=== PATIENT | male | born 1975 | race Caucasian/White ===

== ENCOUNTER 2017-02-19 01:06 | Emergency (ER) | payer MEDICAID ==
[~2017-02-19] VITALS: Ht 175.3 cm; Wt 68.8 kg
[2017-02-19 01:07] VITALS: BP 101/64
== END 2017-02-19 01:20 | disposition left against medical advice (07) ==
LOC: ED 01:14
DX: Z53.21 Procedure and treatment not carried out due to patient leaving prior to being seen by health care provider (principal)

== ENCOUNTER 2017-10-29 05:47 | Emergency (ER) | payer MEDICAID ==
[~2017-10-29] VITALS: Ht 172.7 cm; Wt 67.9 kg
[2017-10-29 05:48] VITALS: BP 117/78
[2017-10-29] MEDS ORDERED: DIPH,PERTUSS(ACELL),TET VAC/PF 0.5 ML IM-VACC ONE (06:44)
[2017-10-29] MEDS ORDERED: DIPH,PERTUSS(ACELL),TET VAC/PF NC IM-VACC ONE (07:00)
== END 2017-10-29 06:59 | disposition home or self-care (01) ==
LOC: ED 06:53
DX: S61.214A Laceration without foreign body of right ring finger without damage to nail, initial encounter (principal); X58.XXXA Exposure to other specified factors, initial encounter; Y93.89 Activity, other specified; Y92.410 Unspecified street and highway as the place of occurrence of the external cause; Y99.8 Other external cause status
CPT/HCPCS: 90471; 90715

== ENCOUNTER 2018-07-04 16:18 | Emergency (ER) | payer SELFPAY ==
[~2018-07-04] VITALS: Ht 172.7 cm; Wt 75.0 kg
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
--- NOTE | 2018-07-04 16:44 | NUR ---
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 Pt refusing lab draw, Michael Damon currently getting court order to draw pts labs. Officers remain at bedside.
--- NOTE | 2018-07-04 17:23 | NUR ---
Court order recieved, lab in to draw blood, continues to be aggressive with staff, officers at bedside.
--- NOTE | 2018-07-04 17:52 | NUR ---
Officers awaiting lab results prior to dc
== END 2018-07-04 18:26 | disposition home or self-care (01) ==
LOC: EDBD → MERGE 16:18 → ED 18:20
DX: S01.81XA Laceration without foreign body of other part of head, initial encounter (principal); F10.20 Alcohol dependence, uncomplicated; Z72.9 Problem related to lifestyle, unspecified; Y04.8XXA Assault by other bodily force, initial encounter; Y93.89 Activity, other specified; Y92.89 Other specified places as the place of occurrence of the external cause; Y99.8 Other external cause status
CPT/HCPCS: 36415; 86705; 86706; 86803; 87340; 87521; 87806; 99283; G0475

== ENCOUNTER 2019-08-22 15:56 | Emergency (ER) | payer MEDICAID, OTHER ==
[~2019-08-22] VITALS: Ht 175.3 cm; Wt 68.4 kg
[2019-08-22] MEDS ORDERED: CEPHALEXIN 500 MG CAPSULE ONE (16:21)
[2019-08-22] MEDS ORDERED: CEPHALEXIN 500 MG CAPSULE PO ONE (16:30)
--- NOTE | 2019-08-22 16:31 | NUR ---
PT SITTING IN BED, RESPIRATIONS EVEN AND UNLABORED, NO SIGNS OF DISTRESS. TECH AT BEDSIDE ATTEMPTING TO REMOVE RING WITH RING CUTTER.
--- NOTE | 2019-08-22 17:12 | NUR ---
PT AMBULATORY TO D/C.
[2019-08-22 17:30] VITALS: BP 103/54
--- NOTE | 2019-08-22 18:32 | NUR ---
PT SITTING IN BED, NO SIGNS OF DISTRESS. PATHOLOGY LABORATORY TECHNOLOGIST AT BEDSIDE TO CUT RING.
== END 2019-08-22 18:53 | disposition home or self-care (01) ==
LOC: ED 16:41
DX: S61.212A Laceration without foreign body of right middle finger without damage to nail, initial encounter (principal); L03.011 Cellulitis of right finger; W22.8XXA Striking against or struck by other objects, initial encounter; Y93.89 Activity, other specified; Y92.89 Other specified places as the place of occurrence of the external cause; Y99.8 Other external cause status
CPT/HCPCS: 99283

== ENCOUNTER 2019-10-29 18:56 | Emergency (ER) | payer MEDICAID ==
[~2019-10-29] VITALS: Ht 177.8 cm; Wt 61.1 kg
[~2019-10-29 18:56] MED LIST: ACET325C6 PO; CLIN150C14 PO
[2019-10-29 19:09] VITALS: BP 115/59
--- NOTE | 2019-10-29 19:40 | NUR ---
LOBBY STAFF NOTES THAT THIS PT HAS LEFT AT THIS TIME STATING THAT HE HAD SOME THINGS TO DO. AMBULATED OUT OF ER WITH STEADY GAIT AND NAD
== END 2019-10-29 19:42 | disposition left against medical advice (07) ==
LOC: ED 19:30
DX: M54.2 Cervicalgia (principal); Z53.21 Procedure and treatment not carried out due to patient leaving prior to being seen by health care provider

== ENCOUNTER 2019-12-05 20:29 | Inpatient (IN) | payer MEDICAID ==
[~2019-12-05] VITALS: Ht 175.3 cm; Wt 68.0 kg
[2019-12-05 21:20] LABS: BASOPHILS # (AUTO) 0.07 x10^3/uL (0-0.1); BASOPHILS % (AUTO) 1 % (0-1); EOSINOPHILS % (AUTO) 3 % (1-7); LYMPHOCYTES # (AUTO) 2.32 x10^3/uL (1-3.4); LYMPHOCYTES % (AUTO) 32 % (22-44); MD NO; MEAN CORPUSCULAR HEMOGLOBIN 27.3 pg (27.5-34.5); MEAN CORPUSCULAR HGB CONC 32.2 g/dL (33.2-36.2); MEAN CORPUSCULAR VOLUME 84.8 fL (81-97); MEAN PLATELET VOLUME 7.5 fL (7.4-10.4); MONOCYTES # (AUTO) 0.55 x10^3/uL (0.2-0.8); MONOCYTES % (AUTO) 8 % (2-9); NEUTROPHILS # (AUTO) 4.17 x10^3/uL (1.8-6.8); NEUTROPHILS % (AUTO) 57 % (42-75); PLATELET COUNT 384 x10^3/uL (130-400); RED BLOOD COUNT 5.25 x10^6/uL (4.38-5.82); RED CELL DISTRIBUTION WIDTH 19.1 % (9.4-14.8)
[2019-12-05 21:30] LABS: ALANINE AMINOTRANSFERASE 124 U/L (12-78); ALBUMIN 3.4 g/dL (3.4-5.0); ANION GAP 3 mmol/L (5-15); C-REACTIVE PROTEIN, QUANT 0.11 mg/dL (0.02-0.49); CHLORIDE 106 mmol/L (98-107); CREATININE 0.69 mg/dL (0.7-1.3)
[2019-12-05 21:32] LABS: ALKALINE PHOSPHATASE 114 U/L (45-117); BILIRUBIN,TOTAL 0.5 mg/dL (0.2-1.0); TOTAL PROTEIN 7.5 g/dL (6.4-8.2)
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
[2019-12-05 21:56] LABS: HCT (SEDRATE) 44.5 % (39.2-51.8)
[2019-12-05] MEDS ORDERED: MORPHINE SULFATE 4 MG/ML, 1ML ONE (22:28)
[2019-12-05] MEDS ORDERED: OXYcodone/APAP 10/325MG TABLET PO ONE (22:30)
[2019-12-05] MEDS ORDERED: MORPHINE SULFATE 4 MG/ML, 1ML IVPush ONE (22:30)
[2019-12-05 22:42] LABS: AMPHETAMINE SCREEN, URINE Negative (Negative); BARBITURATE SCREEN, URINE Negative (Negative); BENZODIAZEPINE SCREEN, URINE Negative (Negative); CANNABINOID SCREEN, URINE Positive (Negative); COCAINE SCREEN, URINE Negative (Negative); METHADONE SCREEN, URINE Negative (Negative); OPIATE SCREEN, URINE Negative (Negative)
--- NOTE | 2019-12-05 22:45 | NUR ---
Patient in MRI
[2019-12-05] MEDS ORDERED: GADOTERATE 7.5 MMOL/15 ML SYR ONE (23:30)
--- NOTE | 2019-12-06 00:09 | NUR ---
TASK RN: PT STILL IN MRI AT THIS TIME.
--- NOTE | 2019-12-06 00:45 | NUR ---
Patient returned from MRI.
--- NOTE | 2019-12-06 00:46 | NUR ---
Patient's friend/caregiver: Dakotah [phone]
[2019-12-06] MEDS ORDERED: CEFTRIAXONE PMX 2GM/50ML 50 ML IV SCH (01:00)
[2019-12-06] MEDS ORDERED: VANCOMYCIN PER PHARMACY MC PRN ×2 (01:00→01:30)
[2019-12-06] MEDS ORDERED: ONDANSETRON 2MG/ML, 2ML IVPush PRN (01:30)
[2019-12-06] MEDS ORDERED: VANCOMYCIN 1,600 MG in SODIUM CHLORIDE 0.9% 250 ML IV ONE (01:30)
[2019-12-06] MEDS: HEPARIN 5,000 UNITS/ML, 1ML SQ SCH ×4 (01:30→16:14)
[2019-12-06] MEDS: NICOTINE 7 MG/24 HR PATCH.TD24 TD SCH (01:30)
--- NOTE | 2019-12-06 02:09 | NUR ---
Report given to FLAKITO Campos. Patient to be transferred to room 459.
[2019-12-06] MEDS ORDERED: PHARMACOKINETIC MONITORING MC PRN (03:00)
[2019-12-06] MEDS ORDERED: PHARMACOKINETIC CONSULTATION MC ONE (03:00)
[2019-12-06 03:32] VITALS: BP 105/70
[2019-12-06] MEDS: AMPICILLIN/SULBACTAM 3 GM in SODIUM CHLORIDE 0.9% 100 ML IV SCH ×4 (04:01→21:33)
[2019-12-06 07:50] VITALS: BP 113/75
[2019-12-06] MEDS: SENNA/DOCUSATE TABLET PO SCH (09:45)
[2019-12-06 13:55] VITALS: BP 106/65
[2019-12-06] MEDS: VANCOMYCIN 1,300 MG in SODIUM CHLORIDE 0.9% 250 ML IV SCH (14:12)
[2019-12-06] MEDS ORDERED: LIDOCAINE 1%, 10ML ONE (14:19)
[2019-12-06] MEDS ORDERED: FENTANYL PF 100 MCG/2ML ONE (14:19)
[2019-12-06] MEDS ORDERED: NALOXONE 1 MG/ML, 2ML ONE (14:19)
[2019-12-06] MEDS ORDERED: FLUMAZENIL 0.1 MG/1 ML, 5ML ONE (14:19)
[2019-12-06] MEDS ORDERED: MIDAZOLAM 1 MG/ML, 5ML ONE (14:19)
[2019-12-06 19:16] VITALS: BP 108/69
[2019-12-06] MEDS: morphine SULFATE 10 MG/ML, 1ML IVPush PRN (20:43)
[2019-12-07] MEDS: NICOTINE 7 MG/24 HR PATCH.TD24 TD SCH (01:30)
[2019-12-07] MEDS: morphine SULFATE 10 MG/ML, 1ML IVPush PRN ×4 (02:19→19:37)
[2019-12-07] MEDS: HEPARIN 5,000 UNITS/ML, 1ML SQ SCH ×3 (02:20→17:29)
[2019-12-07 02:28] VITALS: BP 113/74
[2019-12-07] MEDS: VANCOMYCIN 1,300 MG in SODIUM CHLORIDE 0.9% 250 ML IV SCH ×2 (02:28→13:26)
[2019-12-07] MEDS: AMPICILLIN/SULBACTAM 3 GM in SODIUM CHLORIDE 0.9% 100 ML IV SCH ×4 (04:24→22:18)
[2019-12-07 04:58] VITALS: BP 110/74
[2019-12-07 06:25] VITALS: BP 101/69
[2019-12-07 07:15] LABS: BASOPHILS # (AUTO) 0.04 x10^3/uL (0-0.1); BASOPHILS % (AUTO) 1 % (0-1); EOSINOPHILS # (AUTO) 0.19 x10^3/uL (0-0.4); EOSINOPHILS % (AUTO) 3 % (1-7); LYMPHOCYTES # (AUTO) 2.05 x10^3/uL (1-3.4); LYMPHOCYTES % (AUTO) 34 % (22-44); MD NO; MEAN CORPUSCULAR HGB CONC 31.8 g/dL (33.2-36.2); MEAN CORPUSCULAR VOLUME 85.1 fL (81-97); MEAN PLATELET VOLUME 7.3 fL (7.4-10.4); MONOCYTES % (AUTO) 10 % (2-9); NEUTROPHILS # (AUTO) 3.15 x10^3/uL (1.8-6.8); NEUTROPHILS % (AUTO) 52 % (42-75); PLATELET COUNT 349 x10^3/uL (130-400); RED BLOOD COUNT 5.14 x10^6/uL (4.38-5.82); RED CELL DISTRIBUTION WIDTH 19.1 % (9.4-14.8)
[2019-12-07 07:27] LABS: ALANINE AMINOTRANSFERASE 118 U/L (12-78); ANION GAP 4 mmol/L (5-15); CALCIUM 8.6 mg/dL (8.5-10.1); CHLORIDE 109 mmol/L (98-107)
[2019-12-07 07:29] LABS: ALKALINE PHOSPHATASE 95 U/L (45-117); BILIRUBIN,TOTAL 0.7 mg/dL (0.2-1.0); TOTAL PROTEIN 6.7 g/dL (6.4-8.2)
[2019-12-07] MEDS: SENNA/DOCUSATE TABLET PO SCH (08:54)
[2019-12-07 14:50] VITALS: BP 111/67
[2019-12-07] MEDS: IBUPROFEN 600 MG TABLET PO PRN ×2 (15:41→22:18)
[2019-12-07 19:09] VITALS: BP 106/65
[2019-12-07] MEDS ORDERED: MORPHINE SULFATE 4 MG/ML, 1ML ONE (19:32)
[2019-12-08] MEDS: NICOTINE 7 MG/24 HR PATCH.TD24 TD SCH (01:30)
[2019-12-08] MEDS ORDERED: MORPHINE SULFATE 4 MG/ML, 1ML ONE ×2 (01:38→13:20)
[2019-12-08 01:43] VITALS: BP 109/66
[2019-12-08] MEDS: morphine SULFATE 10 MG/ML, 1ML IVPush PRN ×5 (01:44→21:09)
[2019-12-08] MEDS: HEPARIN 5,000 UNITS/ML, 1ML SQ SCH ×3 (01:46→17:45)
[2019-12-08] MEDS: VANCOMYCIN 1,300 MG in SODIUM CHLORIDE 0.9% 250 ML IV SCH ×2 (01:48→14:00)
[2019-12-08] MEDS: AMPICILLIN/SULBACTAM 3 GM in SODIUM CHLORIDE 0.9% 100 ML IV SCH ×4 (04:18→22:36)
[2019-12-08 05:02] LABS: BASOPHILS # (AUTO) 0.05 x10^3/uL (0-0.1); BASOPHILS % (AUTO) 1 % (0-1); EOSINOPHILS % (AUTO) 4 % (1-7); LYMPHOCYTES # (AUTO) 2.11 x10^3/uL (1-3.4); LYMPHOCYTES % (AUTO) 37 % (22-44); MD NO; MEAN CORPUSCULAR HEMOGLOBIN 27.4 pg (27.5-34.5); MEAN CORPUSCULAR HGB CONC 32.3 g/dL (33.2-36.2); MEAN CORPUSCULAR VOLUME 84.9 fL (81-97); MEAN PLATELET VOLUME 7.7 fL (7.4-10.4); MONOCYTES # (AUTO) 0.53 x10^3/uL (0.2-0.8); MONOCYTES % (AUTO) 9 % (2-9); NEUTROPHILS # (AUTO) 2.77 x10^3/uL (1.8-6.8); NEUTROPHILS % (AUTO) 49 % (42-75); PLATELET COUNT 316 x10^3/uL (130-400); RED CELL DISTRIBUTION WIDTH 18.6 % (9.4-14.8)
[2019-12-08 05:07] LABS: CHLORIDE 110 mmol/L (98-107)
[2019-12-08 05:11] LABS: ANION GAP 4 mmol/L (5-15); CALCIUM 8.8 mg/dL (8.5-10.1); CREATININE 0.65 mg/dL (0.7-1.3)
[2019-12-08 07:12] VITALS: BP 113/69
[2019-12-08] MEDS: SENNA/DOCUSATE TABLET PO SCH (08:55)
[2019-12-08] MEDS: IBUPROFEN 600 MG TABLET PO PRN (11:54)
[2019-12-08 13:54] VITALS: BP 106/62
[2019-12-08 18:55] VITALS: BP 96/59
[2019-12-08] MEDS: VANCOMYCIN PMX 1GM/200ML 200 ML IVPB SCH (21:09)
[2019-12-08] MEDS ORDERED: VANCOMYCIN 1,000 MG in SODIUM CHLORIDE 0.9% 250 ML IV SCH (22:30)
[2019-12-09] MEDS: NICOTINE 7 MG/24 HR PATCH.TD24 TD SCH (01:30)
[2019-12-09] MEDS: HEPARIN 5,000 UNITS/ML, 1ML SQ SCH ×3 (01:49→17:39)
[2019-12-09] MEDS: morphine SULFATE 10 MG/ML, 1ML IVPush PRN ×5 (01:50→23:58)
[2019-12-09 01:51] VITALS: BP 94/51
[2019-12-09] MEDS: AMPICILLIN/SULBACTAM 3 GM in SODIUM CHLORIDE 0.9% 100 ML IV SCH ×4 (04:35→23:58)
[2019-12-09] MEDS: VANCOMYCIN PMX 1GM/200ML 200 ML IVPB SCH ×3 (05:22→21:41)
[2019-12-09 08:02] VITALS: BP 117/71
[2019-12-09] MEDS: SENNA/DOCUSATE TABLET PO SCH (09:00)
[2019-12-09 13:35] VITALS: BP 96/60
[2019-12-09 20:15] VITALS: BP 112/73
[2019-12-10] MEDS: NICOTINE 7 MG/24 HR PATCH.TD24 TD SCH (01:22)
[2019-12-10] MEDS: HEPARIN 5,000 UNITS/ML, 1ML SQ SCH ×3 (01:56→17:48)
[2019-12-10 01:57] VITALS: BP 95/62
[2019-12-10] MEDS: morphine SULFATE 10 MG/ML, 1ML IVPush PRN ×4 (04:51→17:54)
[2019-12-10] MEDS: VANCOMYCIN PMX 1GM/200ML 200 ML IVPB SCH ×3 (05:39→21:48)
[2019-12-10 06:31] LABS: BASOPHILS # (AUTO) 0.05 x10^3/uL (0-0.1); BASOPHILS % (AUTO) 1 % (0-1); EOSINOPHILS # (AUTO) 0.22 x10^3/uL (0-0.4); EOSINOPHILS % (AUTO) 4 % (1-7); LYMPHOCYTES # (AUTO) 1.87 x10^3/uL (1-3.4); LYMPHOCYTES % (AUTO) 32 % (22-44); MD NO; MEAN CORPUSCULAR HEMOGLOBIN 27.5 pg (27.5-34.5); MEAN CORPUSCULAR HGB CONC 32.4 g/dL (33.2-36.2); MONOCYTES # (AUTO) 0.57 x10^3/uL (0.2-0.8); MONOCYTES % (AUTO) 10 % (2-9); NEUTROPHILS # (AUTO) 3.08 x10^3/uL (1.8-6.8); NEUTROPHILS % (AUTO) 53 % (42-75); PLATELET COUNT 300 x10^3/uL (130-400); RED BLOOD COUNT 5.21 x10^6/uL (4.38-5.82); RED CELL DISTRIBUTION WIDTH 18.7 % (9.4-14.8)
[2019-12-10 06:46] LABS: ALBUMIN 3.4 g/dL (3.4-5.0); ANION GAP 4 mmol/L (5-15); CALCIUM 8.9 mg/dL (8.5-10.1); CHLORIDE 106 mmol/L (98-107)
[2019-12-10 07:45] VITALS: BP 102/62
[2019-12-10] MEDS: AMPICILLIN/SULBACTAM 3 GM in SODIUM CHLORIDE 0.9% 100 ML IV SCH ×3 (08:21→23:01)
[2019-12-10] MEDS: SENNA/DOCUSATE TABLET PO SCH (08:30)
[2019-12-10 14:42] VITALS: BP 110/72
[2019-12-10 19:07] VITALS: BP 114/69
[2019-12-11 00:53] VITALS: BP 97/46
[2019-12-11] MEDS: NICOTINE 7 MG/24 HR PATCH.TD24 TD SCH (01:30)
[2019-12-11] MEDS: HEPARIN 5,000 UNITS/ML, 1ML SQ SCH ×3 (01:34→18:14)
[2019-12-11] MEDS: AMPICILLIN/SULBACTAM 3 GM in SODIUM CHLORIDE 0.9% 100 ML IV SCH ×4 (04:54→23:23)
[2019-12-11] MEDS: VANCOMYCIN PMX 1GM/200ML 200 ML IVPB SCH ×3 (05:35→21:58)
[2019-12-11 08:28] VITALS: BP 115/68
[2019-12-11] MEDS: SENNA/DOCUSATE TABLET PO SCH (08:37)
[2019-12-11] MEDS: morphine SULFATE 10 MG/ML, 1ML IVPush PRN ×4 (08:52→19:24)
[2019-12-11 14:00] VITALS: BP 106/65
[2019-12-11 19:59] VITALS: BP 116/74
[2019-12-12] MEDS: morphine SULFATE 10 MG/ML, 1ML IVPush PRN ×3 (00:39→09:34)
[2019-12-12] MEDS: NICOTINE 7 MG/24 HR PATCH.TD24 TD SCH (01:30)
[2019-12-12] MEDS: HEPARIN 5,000 UNITS/ML, 1ML SQ SCH ×3 (01:37→17:24)
[2019-12-12 01:39] VITALS: BP 113/67
[2019-12-12] MEDS: AMPICILLIN/SULBACTAM 3 GM in SODIUM CHLORIDE 0.9% 100 ML IV SCH ×4 (05:15→23:09)
[2019-12-12] MEDS: VANCOMYCIN PMX 1GM/200ML 200 ML IVPB SCH ×3 (05:57→21:35)
[2019-12-12 07:41] VITALS: BP 105/71
[2019-12-12] MEDS: SENNA/DOCUSATE TABLET PO SCH (09:34)
[2019-12-12] MEDS: OXYcodone/APAP 5/325MG TABLET PO PRN ×2 (12:18→17:55)
[2019-12-12 14:10] VITALS: BP 110/69
[2019-12-12 19:58] VITALS: BP 114/68
[2019-12-13] MEDS: NICOTINE 7 MG/24 HR PATCH.TD24 TD SCH (01:30)
[2019-12-13 02:13] VITALS: BP 110/65
[2019-12-13] MEDS: HEPARIN 5,000 UNITS/ML, 1ML SQ SCH ×3 (04:05→19:43)
[2019-12-13] MEDS: OXYcodone/APAP 5/325MG TABLET PO PRN ×3 (04:06→19:43)
[2019-12-13] MEDS: AMPICILLIN/SULBACTAM 3 GM in SODIUM CHLORIDE 0.9% 100 ML IV SCH ×4 (04:10→22:35)
[2019-12-13 04:20] LABS: BASOPHILS # (AUTO) 0.05 x10^3/uL (0-0.1); BASOPHILS % (AUTO) 1 % (0-1); EOSINOPHILS % (AUTO) 4 % (1-7); LYMPHOCYTES # (AUTO) 2.22 x10^3/uL (1-3.4); LYMPHOCYTES % (AUTO) 38 % (22-44); MD NO; MEAN CORPUSCULAR HEMOGLOBIN 27.4 pg (27.5-34.5); MEAN CORPUSCULAR HGB CONC 32.2 g/dL (33.2-36.2); MEAN CORPUSCULAR VOLUME 85.2 fL (81-97); MEAN PLATELET VOLUME 8.1 fL (7.4-10.4); MONOCYTES # (AUTO) 0.69 x10^3/uL (0.2-0.8); MONOCYTES % (AUTO) 12 % (2-9); NEUTROPHILS # (AUTO) 2.63 x10^3/uL (1.8-6.8); NEUTROPHILS % (AUTO) 45 % (42-75); PLATELET COUNT 297 x10^3/uL (130-400); RED BLOOD COUNT 5.06 x10^6/uL (4.38-5.82); RED CELL DISTRIBUTION WIDTH 19.4 % (9.4-14.8)
[2019-12-13 04:31] LABS: ALBUMIN 3.3 g/dL (3.4-5.0); ANION GAP 4 mmol/L (5-15); CALCIUM 8.8 mg/dL (8.5-10.1); CHLORIDE 110 mmol/L (98-107)
[2019-12-13 04:35] LABS: ALANINE AMINOTRANSFERASE 253 U/L (12-78); ALKALINE PHOSPHATASE 98 U/L (45-117); BILIRUBIN,TOTAL 0.5 mg/dL (0.2-1.0); C-REACTIVE PROTEIN, QUANT 0.07 mg/dL (0.02-0.49); TOTAL PROTEIN 7.1 g/dL (6.4-8.2)
[2019-12-13 04:58] LABS: HCT (SEDRATE) 43.1 % (39.2-51.8)
[2019-12-13] MEDS: VANCOMYCIN PMX 1GM/200ML 200 ML IVPB SCH ×3 (05:37→20:57)
[2019-12-13 07:19] VITALS: BP 109/70
[2019-12-13] MEDS: morphine SULFATE 10 MG/ML, 1ML IVPush PRN (08:28)
[2019-12-13] MEDS: SENNA/DOCUSATE TABLET PO SCH (08:28)
[2019-12-13 13:47] VITALS: BP 100/61
[2019-12-13 19:40] VITALS: BP 121/81
[2019-12-14] MEDS: NICOTINE 7 MG/24 HR PATCH.TD24 TD SCH ×2 (00:36→23:38)
[2019-12-14 03:43] VITALS: BP 111/64
[2019-12-14] MEDS: HEPARIN 5,000 UNITS/ML, 1ML SQ SCH ×3 (04:31→20:29)
[2019-12-14] MEDS: AMPICILLIN/SULBACTAM 3 GM in SODIUM CHLORIDE 0.9% 100 ML IV SCH ×3 (04:31→17:17)
[2019-12-14] MEDS: morphine SULFATE 10 MG/ML, 1ML IVPush PRN (04:55)
[2019-12-14] MEDS: VANCOMYCIN PMX 1GM/200ML 200 ML IVPB SCH ×3 (05:23→20:29)
[2019-12-14 05:37] LABS: ALANINE AMINOTRANSFERASE 258 U/L (12-78); ALBUMIN 3.4 g/dL (3.4-5.0); ANION GAP 3 mmol/L (5-15); CALCIUM 8.9 mg/dL (8.5-10.1); CHLORIDE 108 mmol/L (98-107); CREATININE 0.68 mg/dL (0.7-1.3)
[2019-12-14 05:40] LABS: ALKALINE PHOSPHATASE 90 U/L (45-117); BILIRUBIN,TOTAL 0.5 mg/dL (0.2-1.0); TOTAL PROTEIN 7.1 g/dL (6.4-8.2)
[2019-12-14 06:49] VITALS: BP 110/64
[2019-12-14] MEDS: SENNA/DOCUSATE TABLET PO SCH (09:08)
[2019-12-14] MEDS: OXYcodone/APAP 5/325MG TABLET PO PRN ×2 (12:48→20:29)
[2019-12-14 13:35] VITALS: BP 159/61
[2019-12-14 13:38] VITALS: BP 120/68
[2019-12-14 18:26] VITALS: BP 133/83
[2019-12-15] MEDS: AMPICILLIN/SULBACTAM 3 GM in SODIUM CHLORIDE 0.9% 100 ML IV SCH ×2 (00:16→05:07)
[2019-12-15 00:48] VITALS: BP 124/75
[2019-12-15] MEDS: OXYcodone/APAP 5/325MG TABLET PO PRN ×3 (05:07→22:27)
[2019-12-15] MEDS: HEPARIN 5,000 UNITS/ML, 1ML SQ SCH ×3 (05:07→22:28)
[2019-12-15] MEDS: VANCOMYCIN PMX 1GM/200ML 200 ML IVPB SCH ×3 (06:30→22:30)
[2019-12-15 07:36] VITALS: BP 117/86
[2019-12-15] MEDS: SENNA/DOCUSATE TABLET PO SCH (07:53)
[2019-12-15 08:33] LABS: AMPHETAMINE SCREEN, URINE Positive (Negative); BARBITURATE SCREEN, URINE Negative (Negative); BENZODIAZEPINE SCREEN, URINE Negative (Negative); CANNABINOID SCREEN, URINE Negative (Negative); COCAINE SCREEN, URINE Negative (Negative); METHADONE SCREEN, URINE Negative (Negative); OPIATE SCREEN, URINE Negative (Negative)
[2019-12-15 14:24] VITALS: BP 123/72
[2019-12-15] MEDS ORDERED: OMNIPAQUE 350 MG/ML, 100ML BOTTLE ONE (17:50)
[2019-12-15 22:25] VITALS: BP 118/78
[2019-12-15] MEDS: IBUPROFEN 600 MG TABLET PO PRN (22:28)
[2019-12-15] MEDS: NICOTINE 7 MG/24 HR PATCH.TD24 TD SCH (23:33)
[2019-12-16 01:51] VITALS: BP 95/62
[2019-12-16] MEDS: VANCOMYCIN PMX 1GM/200ML 200 ML IVPB SCH ×3 (05:44→22:30)
[2019-12-16] MEDS: HEPARIN 5,000 UNITS/ML, 1ML SQ SCH ×3 (05:45→22:02)
[2019-12-16 08:50] VITALS: BP 111/71
[2019-12-16] MEDS: SENNA/DOCUSATE TABLET PO SCH (08:54)
[2019-12-16] MEDS: OXYcodone/APAP 5/325MG TABLET PO PRN ×2 (08:54→15:10)
[2019-12-16] MEDS: morphine SULFATE 10 MG/ML, 1ML IVPush PRN ×3 (11:53→22:02)
[2019-12-16 14:16] VITALS: BP 110/75
[2019-12-16 20:35] VITALS: BP 136/76
[2019-12-17] MEDS: NICOTINE 7 MG/24 HR PATCH.TD24 TD SCH ×2 (01:30→23:22)
[2019-12-17] MEDS: morphine SULFATE 10 MG/ML, 1ML IVPush PRN ×5 (03:53→18:27)
[2019-12-17] MEDS: VANCOMYCIN PMX 1GM/200ML 200 ML IVPB SCH ×3 (06:10→22:29)
[2019-12-17] MEDS: HEPARIN 5,000 UNITS/ML, 1ML SQ SCH ×3 (06:15→22:29)
[2019-12-17] MEDS: SENNA/DOCUSATE TABLET PO SCH (07:52)
[2019-12-17] MEDS: LORazepam 1MG TABLET PO PRN ×2 (09:20→17:25)
[2019-12-17] MEDS ORDERED: DIPHENHYDRAMINE 50 MG/ML, 1ML IM PRN (15:00)
[2019-12-18] MEDS: HEPARIN 5,000 UNITS/ML, 1ML SQ SCH ×3 (06:07→22:38)
[2019-12-18] MEDS: VANCOMYCIN PMX 1GM/200ML 200 ML IVPB SCH ×3 (06:07→22:37)
[2019-12-18 07:09] VITALS: BP 113/73
[2019-12-18] MEDS: morphine SULFATE 10 MG/ML, 1ML IVPush PRN ×4 (07:57→20:34)
[2019-12-18] MEDS: OXYcodone/APAP 5/325MG TABLET PO PRN ×3 (08:29→22:38)
[2019-12-18] MEDS: SENNA/DOCUSATE TABLET PO SCH (09:00)
[2019-12-18] MEDS: LORazepam 1MG TABLET PO PRN ×2 (10:57→22:38)
[2019-12-18 12:48] VITALS: BP 111/70
[2019-12-18] MEDS: QUETIAPINE 100MG TABLET PO SCH (20:33)
[2019-12-19] MEDS: NICOTINE 7 MG/24 HR PATCH.TD24 TD SCH (00:13)
[2019-12-19] MEDS: HEPARIN 5,000 UNITS/ML, 1ML SQ SCH ×3 (05:59→20:46)
[2019-12-19] MEDS: morphine SULFATE 10 MG/ML, 1ML IVPush PRN ×5 (05:59→21:57)
[2019-12-19] MEDS: VANCOMYCIN PMX 1GM/200ML 200 ML IVPB SCH ×3 (06:01→20:45)
[2019-12-19 07:50] VITALS: BP 100/65
[2019-12-19] MEDS: LORazepam 1MG TABLET PO PRN ×2 (08:25→20:46)
[2019-12-19] MEDS: SENNA/DOCUSATE TABLET PO SCH (08:26)
[2019-12-19] MEDS: OXYcodone/APAP 5/325MG TABLET PO PRN ×2 (08:26→13:43)
[2019-12-19] MEDS ORDERED: LORazepam 2 MG/ML, 1ML IVPush ONE (11:00)
[2019-12-19] MEDS ORDERED: GADOTERATE 7.5 MMOL/15 ML SYR ONE (13:09)
[2019-12-19 15:03] VITALS: BP 102/65
[2019-12-19 18:22] VITALS: BP 116/76
[2019-12-19] MEDS: QUETIAPINE 100MG TABLET PO SCH (20:46)
[2019-12-20 00:21] VITALS: BP 93/57
[2019-12-20 00:53] VITALS: BP 93/57
[2019-12-20] MEDS: morphine SULFATE 10 MG/ML, 1ML IVPush PRN ×6 (01:00→22:22)
[2019-12-20] MEDS: NICOTINE 7 MG/24 HR PATCH.TD24 TD SCH (01:30)
[2019-12-20 05:47] LABS: BASOPHILS # (AUTO) 0.03 x10^3/uL (0-0.1); BASOPHILS % (AUTO) 1 % (0-1); EOSINOPHILS # (AUTO) 0.23 x10^3/uL (0-0.4); EOSINOPHILS % (AUTO) 4 % (1-7); LYMPHOCYTES # (AUTO) 1.67 x10^3/uL (1-3.4); LYMPHOCYTES % (AUTO) 31 % (22-44); MD NO; MEAN CORPUSCULAR HEMOGLOBIN 27.2 pg (27.5-34.5); MEAN CORPUSCULAR HGB CONC 31.8 g/dL (33.2-36.2); MEAN CORPUSCULAR VOLUME 85.4 fL (81-97); MEAN PLATELET VOLUME 8.2 fL (7.4-10.4); MONOCYTES # (AUTO) 0.69 x10^3/uL (0.2-0.8); MONOCYTES % (AUTO) 13 % (2-9); NEUTROPHILS # (AUTO) 2.72 x10^3/uL (1.8-6.8); NEUTROPHILS % (AUTO) 51 % (42-75); PLATELET COUNT 254 x10^3/uL (130-400); RED CELL DISTRIBUTION WIDTH 19.1 % (9.4-14.8)
[2019-12-20] MEDS: HEPARIN 5,000 UNITS/ML, 1ML SQ SCH ×3 (05:56→22:22)
[2019-12-20 05:57] LABS: ALBUMIN 3.5 g/dL (3.4-5.0); ANION GAP 4 mmol/L (5-15); CALCIUM 9.7 mg/dL (8.5-10.1); CHLORIDE 105 mmol/L (98-107); CREATININE 0.74 mg/dL (0.7-1.3)
[2019-12-20 06:06] LABS: ALANINE AMINOTRANSFERASE 382 U/L (12-78); ALKALINE PHOSPHATASE 94 U/L (45-117); BILIRUBIN,TOTAL 0.7 mg/dL (0.2-1.0); TOTAL PROTEIN 7.4 g/dL (6.4-8.2)
[2019-12-20 06:41] LABS: HCT (SEDRATE) 43.6 % (39.2-51.8)
[2019-12-20 08:00] VITALS: BP 107/66
[2019-12-20] MEDS ORDERED: VANCOMYCIN PER PHARMACY MC PRN (08:00)
[2019-12-20] MEDS: SENNA/DOCUSATE TABLET PO SCH (08:27)
[2019-12-20] MEDS: OXYcodone/APAP 5/325MG TABLET PO PRN ×2 (08:27→16:28)
[2019-12-20] MEDS: VANCOMYCIN PMX 1GM/200ML 200 ML IVPB SCH ×2 (09:04→17:33)
[2019-12-20] MEDS: LORazepam 1MG TABLET PO PRN (12:19)
[2019-12-20 14:27] VITALS: BP 105/70
[2019-12-20 19:34] VITALS: BP 111/66
[2019-12-20] MEDS: QUETIAPINE 100MG TABLET PO SCH (22:22)
[2019-12-21] MEDS: NICOTINE 7 MG/24 HR PATCH.TD24 TD SCH (01:30)
[2019-12-21] MEDS: VANCOMYCIN PMX 1GM/200ML 200 ML IVPB SCH ×3 (02:13→18:10)
[2019-12-21 03:06] VITALS: BP 100/63
[2019-12-21 03:34] LABS: AMPHETAMINE SCREEN, URINE Negative (Negative); BARBITURATE SCREEN, URINE Negative (Negative); BENZODIAZEPINE SCREEN, URINE Negative (Negative); CANNABINOID SCREEN, URINE Negative (Negative); COCAINE SCREEN, URINE Negative (Negative); METHADONE SCREEN, URINE Negative (Negative); OPIATE SCREEN, URINE Positive (Negative)
[2019-12-21] MEDS: HEPARIN 5,000 UNITS/ML, 1ML SQ SCH ×3 (06:26→20:30)
[2019-12-21] MEDS: morphine SULFATE 10 MG/ML, 1ML IVPush PRN ×5 (06:26→20:26)
[2019-12-21 07:45] VITALS: BP 108/67
[2019-12-21] MEDS: LORazepam 1MG TABLET PO PRN ×2 (08:27→18:09)
[2019-12-21] MEDS: SENNA/DOCUSATE TABLET PO SCH (09:38)
[2019-12-21 16:16] VITALS: BP 116/74
[2019-12-21 19:48] VITALS: BP 111/71
[2019-12-21] MEDS: QUETIAPINE 100MG TABLET PO SCH (20:25)
[2019-12-22] MEDS: NICOTINE 7 MG/24 HR PATCH.TD24 TD SCH (00:07)
[2019-12-22] MEDS: VANCOMYCIN PMX 1GM/200ML 200 ML IVPB SCH ×3 (02:18→18:21)
[2019-12-22 03:48] VITALS: BP 107/67
[2019-12-22] MEDS: morphine SULFATE 10 MG/ML, 1ML IVPush PRN ×3 (03:48→16:41)
[2019-12-22] MEDS: HEPARIN 5,000 UNITS/ML, 1ML SQ SCH ×3 (03:48→21:33)
[2019-12-22] MEDS: SENNA/DOCUSATE TABLET PO SCH (08:23)
[2019-12-22] MEDS: OXYcodone/APAP 5/325MG TABLET PO PRN ×2 (11:38→18:21)
[2019-12-22 13:00] VITALS: BP 116/69
[2019-12-22 18:43] VITALS: BP 108/63
[2019-12-22] MEDS: QUETIAPINE 100MG TABLET PO SCH (21:32)
[2019-12-23] MEDS: VANCOMYCIN 1,100 MG in SODIUM CHLORIDE 0.9% 250 ML IV SCH ×3 (00:42→16:43)
[2019-12-23 00:46] VITALS: BP 104/64
[2019-12-23] MEDS: NICOTINE 7 MG/24 HR PATCH.TD24 TD SCH (01:00)
[2019-12-23] MEDS: OXYcodone/APAP 5/325MG TABLET PO PRN ×3 (02:18→20:24)
[2019-12-23] MEDS: HEPARIN 5,000 UNITS/ML, 1ML SQ SCH ×3 (06:14→22:08)
[2019-12-23 08:04] VITALS: BP 113/77
[2019-12-23] MEDS: SENNA/DOCUSATE TABLET PO SCH (09:00)
[2019-12-23 13:10] VITALS: BP 124/82
[2019-12-23] MEDS: morphine SULFATE 10 MG/ML, 1ML IVPush PRN (13:15)
[2019-12-23] MEDS: QUETIAPINE 100MG TABLET PO SCH (20:24)
[2019-12-23 20:28] VITALS: BP 107/70
[2019-12-23] MEDS: LORazepam 1MG TABLET PO PRN (22:08)
[2019-12-24] MEDS: NICOTINE 7 MG/24 HR PATCH.TD24 TD SCH (01:30)
[2019-12-24] MEDS: VANCOMYCIN 1,100 MG in SODIUM CHLORIDE 0.9% 250 ML IV SCH ×3 (01:36→18:02)
[2019-12-24 01:39] VITALS: BP 99/63
[2019-12-24] MEDS: HEPARIN 5,000 UNITS/ML, 1ML SQ SCH ×3 (06:12→21:27)
[2019-12-24 08:12] VITALS: BP 118/77
[2019-12-24] MEDS: OXYcodone/APAP 5/325MG TABLET PO PRN ×3 (08:31→21:27)
[2019-12-24] MEDS: SENNA/DOCUSATE TABLET PO SCH (08:31)
[2019-12-24 13:04] VITALS: BP 109/71
[2019-12-24 20:49] VITALS: BP 114/74
[2019-12-24] MEDS: QUETIAPINE 100MG TABLET PO SCH (21:27)
[2019-12-25] MEDS: NICOTINE 7 MG/24 HR PATCH.TD24 TD SCH ×2 (01:30→20:30)
[2019-12-25 01:32] VITALS: BP 93/60
[2019-12-25] MEDS: VANCOMYCIN 1,100 MG in SODIUM CHLORIDE 0.9% 250 ML IV SCH ×3 (02:40→18:35)
[2019-12-25 05:20] LABS: CHLORIDE 107 mmol/L (98-107)
[2019-12-25] MEDS: OXYcodone/APAP 5/325MG TABLET PO PRN ×3 (05:20→18:35)
[2019-12-25] MEDS: HEPARIN 5,000 UNITS/ML, 1ML SQ SCH ×3 (05:20→20:43)
[2019-12-25 05:24] LABS: ANION GAP 6 mmol/L (5-15); CALCIUM 9.2 mg/dL (8.5-10.1); CREATININE 0.58 mg/dL (0.7-1.3)
[2019-12-25 08:19] VITALS: BP 122/81
[2019-12-25] MEDS: morphine SULFATE 10 MG/ML, 1ML IVPush PRN ×2 (08:43→16:32)
[2019-12-25] MEDS: SENNA/DOCUSATE TABLET PO SCH (08:44)
[2019-12-25 12:48] VITALS: BP 122/80
[2019-12-25 18:52] VITALS: BP 120/82
[2019-12-25] MEDS: QUETIAPINE 100MG TABLET PO SCH (20:43)
[2019-12-26 00:07] VITALS: BP 118/77
[2019-12-26] MEDS: OXYcodone/APAP 5/325MG TABLET PO PRN ×3 (02:42→21:04)
[2019-12-26] MEDS: VANCOMYCIN 1,100 MG in SODIUM CHLORIDE 0.9% 250 ML IV SCH ×3 (02:44→18:11)
[2019-12-26] MEDS: HEPARIN 5,000 UNITS/ML, 1ML SQ SCH ×3 (05:40→21:03)
[2019-12-26 08:00] VITALS: BP 133/74
[2019-12-26] MEDS: SENNA/DOCUSATE TABLET PO SCH (09:11)
[2019-12-26] MEDS ORDERED: LORazepam 0.5MG TABLET ONE (14:01)
[2019-12-26] MEDS: LORazepam 1MG TABLET PO PRN (14:04)
[2019-12-26] MEDS: HALOPERIDOL 5 MG/ML IM PRN (14:44)
[2019-12-26] MEDS: QUETIAPINE 25MG TABLET PO PRN (14:44)
[2019-12-26 19:44] VITALS: BP 109/67
[2019-12-26] MEDS: QUETIAPINE 100MG TABLET PO SCH (21:03)
[2019-12-26] MEDS ORDERED: OMNIPAQUE 350 MG/ML, 100ML BOTTLE ONE (23:27)
[2019-12-27] MEDS: NICOTINE 7 MG/24 HR PATCH.TD24 TD SCH ×2 (01:31→22:31)
[2019-12-27 02:06] VITALS: BP 110/68
[2019-12-27] MEDS: VANCOMYCIN 1,100 MG in SODIUM CHLORIDE 0.9% 250 ML IV SCH ×3 (02:43→20:28)
[2019-12-27 04:52] LABS: HCT (SEDRATE) 41.1 % (39.2-51.8)
[2019-12-27 04:57] LABS: BASOPHILS # (AUTO) 0.04 x10^3/uL (0-0.1); BASOPHILS % (AUTO) 1 % (0-1); EOSINOPHILS # (AUTO) 0.32 x10^3/uL (0-0.4); EOSINOPHILS % (AUTO) 6 % (1-7); LYMPHOCYTES # (AUTO) 1.62 x10^3/uL (1-3.4); LYMPHOCYTES % (AUTO) 28 % (22-44); MD NO; MEAN CORPUSCULAR HEMOGLOBIN 27.6 pg (27.5-34.5); MEAN CORPUSCULAR HGB CONC 32.5 g/dL (33.2-36.2); MEAN CORPUSCULAR VOLUME 84.8 fL (81-97); MEAN PLATELET VOLUME 7.7 fL (7.4-10.4); MONOCYTES # (AUTO) 0.81 x10^3/uL (0.2-0.8); MONOCYTES % (AUTO) 14 % (2-9); NEUTROPHILS # (AUTO) 2.92 x10^3/uL (1.8-6.8); NEUTROPHILS % (AUTO) 51 % (42-75); PLATELET COUNT 291 x10^3/uL (130-400); RED BLOOD COUNT 4.88 x10^6/uL (4.38-5.82); RED CELL DISTRIBUTION WIDTH 19.9 % (9.4-14.8)
[2019-12-27 05:02] LABS: ALBUMIN 3.6 g/dL (3.4-5.0); ANION GAP 6 mmol/L (5-15); CALCIUM 9.7 mg/dL (8.5-10.1); CHLORIDE 108 mmol/L (98-107)
[2019-12-27 05:13] LABS: ALANINE AMINOTRANSFERASE 200 U/L (12-78); ALKALINE PHOSPHATASE 94 U/L (45-117); BILIRUBIN,TOTAL 0.6 mg/dL (0.2-1.0); CREATININE 0.71 mg/dL (0.7-1.3); TOTAL PROTEIN 7.3 g/dL (6.4-8.2)
[2019-12-27] MEDS: HEPARIN 5,000 UNITS/ML, 1ML SQ SCH ×3 (05:50→21:12)
[2019-12-27 07:15] VITALS: BP 123/77
[2019-12-27] MEDS: LORazepam 1MG TABLET PO PRN ×2 (08:55→18:16)
[2019-12-27] MEDS: SENNA/DOCUSATE TABLET PO SCH (08:56)
[2019-12-27] MEDS: IBUPROFEN 600 MG TABLET PO PRN ×2 (08:56→14:04)
[2019-12-27] MEDS: QUETIAPINE 25MG TABLET PO PRN (14:04)
[2019-12-27 15:00] VITALS: BP 125/79
[2019-12-27] MEDS: OXYcodone/APAP 5/325MG TABLET PO PRN (18:16)
[2019-12-27] MEDS ORDERED: QUETIAPINE 100MG TABLET PO SCH (21:00)
[2019-12-27] MEDS: morphine SULFATE 10 MG/ML, 1ML IVPush PRN (21:07)
[2019-12-27 21:15] VITALS: BP 118/72
[2019-12-27 21:25] LABS: AMPHETAMINE SCREEN, URINE Negative (Negative); BARBITURATE SCREEN, URINE Negative (Negative); BENZODIAZEPINE SCREEN, URINE Negative (Negative); CANNABINOID SCREEN, URINE Negative (Negative); COCAINE SCREEN, URINE Negative (Negative); METHADONE SCREEN, URINE Negative (Negative); OPIATE SCREEN, URINE Positive (Negative)
[2019-12-28 02:51] VITALS: BP 99/64
[2019-12-28] MEDS: VANCOMYCIN 1,100 MG in SODIUM CHLORIDE 0.9% 250 ML IV SCH ×2 (04:16→11:23)
[2019-12-28] MEDS: HEPARIN 5,000 UNITS/ML, 1ML SQ SCH (06:30)
[2019-12-28] MEDS: OXYcodone/APAP 5/325MG TABLET PO PRN ×2 (06:34→14:55)
[2019-12-28] MEDS: IBUPROFEN 600 MG TABLET PO PRN (08:26)
[2019-12-28] MEDS: SENNA/DOCUSATE TABLET PO SCH (08:26)
[2019-12-28 08:27] VITALS: BP 108/76
[2019-12-28] MEDS: LORazepam 1MG TABLET PO PRN (10:47)
[2019-12-28] MEDS: QUETIAPINE 25MG TABLET PO PRN (10:47)
[2019-12-28] MEDS: HALOPERIDOL 5 MG/ML IM PRN (11:29)
[2019-12-28 14:42] VITALS: BP 125/71
== END 2019-12-28 15:12 | disposition left against medical advice (07) | DRG 540 ==
LOC: ED 20:59 → EDIP 12-06 01:00 → 4NE 12-06 02:53
PROVIDERS: ADMIT Family Medicine; ATTEND Family Medicine
PROC: 0S923ZX Drainage of Lumbar Vertebral Disc, Percutaneous Approach, Diagnostic (ICD-10-PCS; principal; 2019-12-06)
PROC: 0S923ZX Drainage of Lumbar Vertebral Disc, Percutaneous Approach, Diagnostic (ICD-10-PCS; 2019-12-06)
DX: M46.22 Osteomyelitis of vertebra, cervical region (principal); F15.20 Other stimulant dependence, uncomplicated; F23 Brief psychotic disorder; G95.20 Unspecified cord compression; J39.0 Retropharyngeal and parapharyngeal abscess; L02.11 Cutaneous abscess of neck; M48.52XA Collapsed vertebra, not elsewhere classified, cervical region, initial encounter for fracture; A18.01 Tuberculosis of spine; R45.851 Suicidal ideations; B18.2 Chronic viral hepatitis C; F10.10 Alcohol abuse, uncomplicated; F12.90 Cannabis use, unspecified, uncomplicated; F17.210 Nicotine dependence, cigarettes, uncomplicated; F31.9 Bipolar disorder, unspecified; F41.9 Anxiety disorder, unspecified; H93.19 Tinnitus, unspecified ear; L08.9 Local infection of the skin and subcutaneous tissue, unspecified; M40.209 Unspecified kyphosis, site unspecified; M43.12 Spondylolisthesis, cervical region; M46.42 Discitis, unspecified, cervical region; M48.02 Spinal stenosis, cervical region; X50.0XXA Overexertion from strenuous movement or load, initial encounter; Z59.0 Homelessness; Z91.19 Patient's noncompliance with other medical treatment and regimen; Z79.899 Other long term (current) drug therapy
CPT/HCPCS: 36415; 72072; 75989; 87806; 96374; 99291; J3490; 62267; 70450; 72125; 72126; 72127; 72156; 72157; 76705; 80048; 80053; 80069; 80074; 80202; 80307; 83735; 85025; 85651; 86140; 87040; 87070; 87075; 87081; 87205; 87521; 93005; 99156; 99157; G0378; J0295; J1644; J2250; J3010; J3370; Q9967; A9575; G0475; J1630; J2270; J2310; J7050

== ENCOUNTER 2020-06-22 06:16 | Emergency (ER) | payer MEDICAID ==
[~2020-06-22] VITALS: Ht 175.3 cm; Wt 68.6 kg
[~2020-06-22 06:16] MED LIST changes: -CLIN150C14 PO; +CLIN150C15 PO
[2020-06-22 06:35] VITALS: BP 119/77
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
--- NOTE | 2020-06-22 07:01 | NUR ---
report given to Prasad FRAGA
--- NOTE | 2020-06-22 07:07 | NUR ---
ERMD AT BEDSIDE FOR EVALUATION.
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
== END 2020-06-22 07:43 | disposition left against medical advice (07) ==
LOC: ED 07:37
DX: G89.29 Other chronic pain (principal); M54.2 Cervicalgia
CPT/HCPCS: 99281